=== PATIENT | male | born 1985 | race Caucasian/White ===

== ENCOUNTER 2020-03-10 11:06 | Emergency (ER) | payer OTHER, SELFPAY ==
[2020-03-10 11:15] VITALS: BP 116/76; PULSE 78; RESP 16; TEMP 36.8; O2SAT 98; BMI 29.8
--- NOTE | 2020-03-10 11:47 | XR_ITS ---
EXAMINATION: XR KNEE, RIGHT CLINICAL INFORMATION: Injury COMPARISON: None TECHNIQUE: Four views of the right knee. FINDINGS: No fracture or subluxation. Compartment of joint spaces are maintained. No joint effusion. Enthesophyte formation of the patella. XR/XR knee RT 4V IMPRESSION: No acute abnormality.
--- NOTE | 2020-03-10 11:57 | ED.LOWEXIN ---
HPI - Extremity Injury (Lower) General Chief Complaint: Extremity Injury, Lower Stated Complaint: rt knee inj Time Seen by Provider: 03/10/20 11:47 History of Present Illness HPI Narrative: Patient complains of right knee injury yesterday when he twisted it in sports, no other injury no numbness no weakness no head injury no neck pain Related Data Previous Rx's Medication Instructions Recorded ibuprofen 600 mg PO Q6H PRN #20 tab 03/10/20 oxycodone-acetaminophen [Percocet] 1 tab PO Q6H PRN #14 tab 03/10/20 Allergies Allergy/AdvReac Type Severity Reaction Status Date / Time No Known Allergies Allergy Unverified 01/10/20 16:43 [No Known Allergies*] Review of Systems Review of Systems: Review of systems positive for right knee injury There is no numbness no weakness no paresthesias no laceration no headache no neck pain no chest pain PMFSH Past Medical History Source: nursing notes reviewed Surgical History (Updated 03/10/20 @ 11:18 by Marlen Hernadez) History of cholecystectomy Hx of appendectomy Social History Social History Advance Directives: No Advance Directives Information Provided: Yes Physical Exam Vital Signs: Vital Signs: Last Vital Signs Temp 98.2 F 03/10/20 11:15 Pulse 78 03/10/20 11:15 Resp 16 03/10/20 11:15 BP 116/76 03/10/20 11:15 Pulse Ox 98 03/10/20 11:15 Body Mass Index 29.8 Patient is A&O x3, no acute distress Head is normocephalic atraumatic Neck is supple Extremities the right knee has medial tenderness and swelling he can extend the knee there is no evidence of quadriceps or patellar tendon disruption, the knee is extended to 180 and very uncomfortable with any flexion There is no redness or warmth, he can ambulate but with a bad limp, there is no effusion, there is no laceration, no ecchymosis, neurovascular is intact distal Skin no rashes Neuro no focal deficit Course Course Course Narrative: No acute findings on right knee x-ray and patient is given crutches and a knee immobilizer for comfort and given warnings that over use of knee immobilizer can lead to muscle weakening and decreased range of motion He is advised to follow with orthopedist MDM - Extremity Injury (Lower) Imaging Data r knee x ray: Radiologist's impression: XR KNEE, RIGHT CLINICAL INFORMATION: Injury COMPARISON: None TECHNIQUE: Four views of the right knee. FINDINGS: No fracture or subluxation. Compartment of joint spaces are maintained. No joint effusion. Enthesophyte formation of the patella. XR/XR knee RT 4V IMPRESSION: No acute abnorm Discharge Plan Discharge Clinical Impression: Right knee sprain Patient Disposition: Home, Self-Care Additional Instructions: You may have injured a ligament or cartilage in her right knee Follow with orthopedist for further evaluation X-rays did not reveal any bony injury Return any concerns Prescriptions: New ibuprofen 600 mg tablet 600 mg PO Q6H PRN (Reason: pain) Qty: 20 RF: 0 oxycodone-acetaminophen [Percocet] 5-325 mg tablet 1 tab PO Q6H PRN (Reason: pain) Qty: 14 RF: 0 Referrals: Leah Weems MD [Physician] - 2 days (Right knee injury) Discharge Date/Time: 03/10/20 13:03
== END 2020-03-10 13:03 | disposition home or self-care (01) ==
PROVIDERS: Emergency Provider Emergency Medicine
DX: S83.91XA Sprain of unspecified site of right knee, initial encounter (principal); M25.561 Pain in right knee; X50.1XXA Overexertion from prolonged static or awkward postures, initial encounter; Y93.79 Activity, other specified sports and athletics; Y92.9 Unspecified place or not applicable; Y99.9 Unspecified external cause status; Z79.899 Other long term (current) drug therapy
CPT/HCPCS: 73564; 99282; 99283

== ENCOUNTER 2020-04-20 06:50 | Emergency (ER) | payer OTHER, SELFPAY ==
[2020-04-20 07:00] VITALS: BP 136/95; PULSE 67; RESP 16; TEMP 36.4; O2SAT 98; BMI 30.5
--- NOTE | 2020-04-20 08:20 | ED.DENTAL ---
HPI - Dental/Oral General Chief complaint: Dental/Oral Stated complaint: Dental pain Time Seen by Provider: 04/20/20 08:20 Source: patient Mode of arrival: ambulatory Limitations: no limitations History of Present Illness Complaint: tooth pain Location: Tooth # (Right lower wisdom tooth) Onset (ago): day(s) (2) Duration: constant Severity: severe Severity scale (1-10): 10 Relieving factors: nothing Exacerbating factors: chewing Context: history of dental caries (Similar pain in right lower wisdom tooth 1 year prior treated with antibiotics and pain medication) Associated symptoms: gum swelling and other (Mild trismus) Treatment prior to arrival: oral analgesic (Taking Tylenol and ibuprofen without relief) Related Data Previous Rx's Medication Instructions Recorded ibuprofen 600 mg PO Q6H PRN #20 tab 03/10/20 oxycodone-acetaminophen [Percocet] 1 tab PO Q6H PRN #14 tab 03/10/20 oxycodone 5 mg PO Q4H PRN #10 tab 04/20/20 Allergies Allergy/AdvReac Type Severity Reaction Status Date / Time No Known Allergies Allergy Unverified 01/10/20 16:43 [No Known Allergies*] Review of Systems Review of Systems: Yes all other systems are reviewed and are negative [facility] Past Medical History [facility] Narrative: Patient has no medical problems, he denies tobacco use, he drinks alcohol on the weekends, he smokes marijuana every other day Surgical History History of cholecystectomy Hx of appendectomy Social History Social History Advance Directives: No Advance Directives Information Provided: No Physical Exam Vital Signs: Vital Signs: Last Vital Signs Temp 97.6 F 04/20/20 07:00 Pulse 67 04/20/20 07:00 Resp 16 04/20/20 07:00 BP 136/95 H 04/20/20 07:00 Pulse Ox 98 04/20/20 07:00 Body Mass Index 30.5 Const: General: cooperative and healthy appearing Orientation/consciousness: oriented to person, oriented to place and oriented to time HENMT: Head: Yes normal to inspection General nose exam: Normal external nose present Face and sinus: Yes other (Asymmetric swelling of the right lower jaw compared to the left, tenderness) Mouth: Normal oral and palatal mucosa present, lip normal, tongue normal, no audible dysphonia and no drooling Throat: Yes other (Tenderness with palpation over the right lower wisdom tooth) Eyes: General: appearance normal, both eyes and all related structures Neck: Neck: Yes full ROM and No lymphadenopathy Neuro: General: oriented to person, oriented to place and oriented to time Psych: Appearance: grossly normal Mental Status: mental status grossly normal Speech and movement: Normal speech and movement present Course Course Course Narrative: 34-year-old male who presents emergency department for evaluation of right lower dental pain x2 days with severe pain not relieved by Tylenol and ibuprofen. Physical examination did reveal tenderness with palpation over the right lower jaw was done to with some slight trismus. The patient will be started on penicillin 500 mg 4 times a day for 7 days, he was advised to take ibuprofen Tylenol he was given a very limited prescription for oxycodone to treat his pain. I did discuss the addictive potential of oxycodone and the patient is aware of this and does want this pain medication given the severity of his pain. He is advised to follow-up with a dentist within 1 week and return to the emergency department if his symptoms get worse or if he develops any new symptoms that are concerning to him. [facility] search revealed 1 prescription for Percocet dispensed 14 tablets 1 month prior. Given that the patient has got no pain relief from the ibuprofen and Tylenol I felt that a limited prescription oxycodone was warranted. Discharge Plan Discharge Clinical Impression: Toothache Patient Disposition: Home, Self-Care Instructions: Toothache (ED) Additional Instructions: Take ibuprofen 200 mg pills, 3 pills every 6 hours as needed for pain. Take Tylenol (acetaminophen) 500 mg pills, 2 pills every 4-6 hours as needed for pain. For pain not relieved by ibuprofen or Tylenol take oxycodone 5 mg pills, 1 pill every 4 hours as needed for pain. Do not drive or work while taking this medication since they can cause sleepiness. Oxycodone is a narcotic medication that can be addicting. If you are concerned about addiction you can ask the pharmacist for less pills or do not get this prescription filled. Take penicillin 500 mg pills, 1 pill 4 times a day for 7 days. Follow-up with dentist within 1 week. Please return to the emergency department if her symptoms get worse or if you develop any new symptoms that are concerning to you. Prescriptions: New oxycodone 5 mg tablet 5 mg PO Q4H PRN (Reason: pain) Qty: 10 RF: 0 No Action ibuprofen 600 mg tablet 600 mg PO Q6H PRN (Reason: pain) Qty: 20 RF: 0 oxycodone-acetaminophen [Percocet] 5-325 mg tablet 1 tab PO Q6H PRN (Reason: pain) Qty: 14 RF: 0
== END 2020-04-20 09:45 | disposition home or self-care (01) ==
PROVIDERS: Emergency Provider Emergency Medicine Emergency Medical Services
DX: K08.89 Other specified disorders of teeth and supporting structures (principal); Z79.899 Other long term (current) drug therapy
CPT/HCPCS: 99283

== ENCOUNTER 2022-11-04 11:01 | Emergency (ER) | payer OTHER, SELFPAY ==
--- NOTE | 2022-11-04 11:31 | ED_ITS ---
HPI - General Adult General Chief complaint: Ear Problems Stated complaint: l ear blocked Time Seen by Provider: 11/04/22 12:33 Source: patient, RN notes reviewed and old records reviewed Mode of arrival: ambulatory History of Present Illness HPI narrative: 37-year-old male with no significant past medical history presenting to the ED complaining of left ear pain and feeling clogged s/p swimming yesterday. States tried to clean/dry out ear with Q-tip however feels like he pushed earwax deeper. Denies drainage from ear, fever/chills, sore throat, cough Onset (ago): hour(s) Related Data Previous Rx's Medication Instructions Recorded ibuprofen 600 mg tablet 600 mg PO Q6H PRN pain #20 tabs 03/10/20 oxycodone-acetaminophen 5 mg-325 1 tab PO Q6H PRN pain #14 tabs 03/10/20 mg tablet (Percocet) oxycodone 5 mg tablet 5 mg PO Q4H PRN pain #10 tabs 04/20/20 penicillin V potassium 500 mg 500 mg PO QID 7 days #28 tabs 04/20/20 tablet ciprofloxacin 0.3 %-dexamethasone 4 drp otic (ear) left BID 7 days 11/04/22 0.1 % ear drops,suspension #7.5 mL (Ciprodex) Allergies Allergy/AdvReac Type Severity Reaction Status Date / Time No Known Allergies Allergy Unverified 01/10/20 16:43 [No Known Allergies*] Review of Systems Review of Systems: Constitutional: No Fever, No Chills ENT/Mouth: + Ear Pain, No Nasal Congestion, No sore throat, No Rhinorrhea, No Swallowing Difficulty Cardiovascular: No Chest Pain, No SOB Respiratory: No Cough, No Sputum, No Wheezing Gastrointestinal: No Nausea, No Vomiting, No Abdominal pain Musculoskeletal: No joint pain Skin: No Skin Lesions, No rash Neuro: No Weakness Yes all other systems are reviewed and are negative Constitutional: Constitutional: Reports as per [facility] Past Medical History Attestation statement: The following information was validated with the patient. Source: old records reviewed Surgical History History of cholecystectomy Hx of appendectomy Social History Social History Smoked in Last 30 Days: No Use of substances other than those prescribed or required for medical reasons: No Advance Directives: No Advance Directives Information Provided: Yes Physical Exam ED Vital Signs: Vital Signs - 24 hr 11/04/22 11:32 Temperature 96.9 F Pulse Rate 76 Respiratory Rate 18 Blood Pressure 128/90 H Pulse Oximetry 97 Oxygen Delivery Method Room Air BMI result Body Mass Index 30.6 Const General: cooperative, healthy appearing and no acute distress Orientation/consciousness: patient oriented x3 Limitations: no limitations HENMT Head: Yes normal to inspection and Yes atraumatic Ears: hearing grossly normal bilaterally, mastoids normal and Abnormal EAC present cerumen impaction on the left, erythema on the left and edema on the left; no foreign body and no otic discharge General nose exam: Normal external nose present Face and sinus: Yes normal facial exam Throat: Yes posterior oropharynx normal, Yes tonsils normal, Yes uvula midline, No peritonsillar mass and No uvula laterally displaced Eyes General: appearance normal, both eyes and all related structures EOM: EOMs intact bilaterally Neck Neck: Yes normal visual inspection, Yes no lymphadenopathy, Yes no meningeal signs and No anterior neck swelling Resp Effort & Inspection: normal respiratory effort and no respiratory distress Cardio Rate: regular rate Skin Rashes: no rashes Wounds: no wounds Neuro General: patient oriented x3, tone normal and no meningeal signs Gait exam (Neuro): Normal gait present Extrem General: Yes normal to inspection Course Course Course Narrative: This is a rapid medical exam: Additional HPI, ROS, PE not included below will be deferred to primary provider. Patient is a 37-year-old male presenting with sensation of left ear feeling blocked since yesterday. [place] as though he had water in his ear after swimming, attempted to remove the water with a Q-tip, but states that made pressure worse. Tried OTC drops without relief. Canal erythematous, unable to visualize TM due to cerumen impaction. Plan: [facility] Medications Administered Discontinued Medications Generic Name Dose Route Start Last Admin Trade Name Freq PRN Reason Stop Dose Admin Docusate Sodium 100 mg 11/04/22 12:44 11/04/22 12:58 Docusate Sodium 100 Mg/10 Ml Liquid PO 11/04/22 12:45 100 mg ONCE ONE Administration Medical Decision Making Medical Decision Making MDM Narrative: 37-year-old male with no significant past medical history presenting to the ED complaining of left ear pain and feeling clogged s/p swimming yesterday. On exam vital signs stable, NAD, nontoxic appearing, physical exam as noted above with left ear cerumen impaction and external ear canal edema/erythema. Mastoid WNL. Cerumen in partially cleared with Colace/irrigation. Low suspicion for mastoiditis, chronic otitis externa, or viral syndrome Will treat for otitis externa Results discussed with patient including worrisome signs and symptoms and strict return precautions, and when to return to the emergency department. They verbalized understanding and feel safe for discharge at this time. Differential Diagnosis Differential Diagnoses: The differential diagnosis associated with the presentation includes As above External Record Review External record reviewed: Inpatient record, Office record, Outpatient record, Prior outpatient labs, Prior outpatient radiology, Primary care record and Outside ED record Tests considered The following testing was considered but not selected: As above Prescription Management I considered prescription management with: Pain Medication and Antibiotic Discharge Plan Discharge Clinical Impression: Otitis externa Patient Disposition: Home, Self-Care Instructions: Otitis Externa (DC) Additional Instructions: used 50/50 soaks of saline and peroxide at home, soaking in ear for about 10 mi nutes nightly which will help soften her earwax Ciprodex is antibacterial ear drop, please apply to your ear Take Tylenol /Motrin as needed If symptoms persist or worsen return to ED Prescriptions: New ciprofloxacin-dexamethasone [Ciprodex] 0.3-0.1 % drops,suspension 4 drp otic (ear) left BID 7 Days Qty: 7.5 0RF No Action ibuprofen 600 mg tablet 600 mg PO Q6H PRN (Reason: pain) Qty: 20 0RF oxycodone-acetaminophen [Percocet] 5-325 mg tablet 1 tab PO Q6H PRN (Reason: pain) Qty: 14 0RF Rx Instructions: Narcotic, no driving for 6 hours after taking may cause drowsiness oxycodone 5 mg tablet 5 mg PO Q4H PRN (Reason: pain) Qty: 10 0RF penicillin V potassium 500 mg tablet 500 mg PO QID 7 Days Qty: 28 0RF Referrals: Yaya Felix [Physician] - (as needed) Physician,None [Primary Care Provider] - Interventions: ED Discharge Assessment Last Done: 11/04/22 14:23 Discharge Date/Time: 11/04/22 14:25
[2022-11-04 11:32] VITALS: BP 128/90; PULSE 76; RESP 18; TEMP 36.1; O2SAT 97; BMI 30.6
--- NOTE | 2022-11-04 12:46 | ED_ITS ---
HPI - General Adult General Chief complaint: Ear Problems Stated complaint: l ear blocked Time Seen by Provider: 11/04/22 12:33 History of Present Illness HPI narrative: 37 yo previously healthy male presents to the ED for evaluation for left ear hearing loss x 1 day. He reports that he went swimming yesterday evening when he got some water in his ear. He put Q-tip in his ear and think he push ear wax too far back when his hearing became completely blocked. He tried OTC topical cerumen softener drops and ear irrigation system from [facility] without relief. Denies history of ear infections. Denies fever, chills, headache, ear pain or discharge, sore throat, chest pain, SOB, abdominal pain, N/V/D. Related Data Previous Rx's Medication Instructions Recorded ibuprofen 600 mg tablet 600 mg PO Q6H PRN pain #20 tabs 03/10/20 oxycodone-acetaminophen 5 mg-325 1 tab PO Q6H PRN pain #14 tabs 20 mg tablet (Percocet) oxycodone 5 mg tablet 5 mg PO Q4H PRN pain #10 tabs 04/20/20 penicillin V potassium 500 mg 500 mg PO QID 7 days #28 tabs 04/20/20 tablet ciprofloxacin 0.3 %-dexamethasone 4 drp otic (ear) left BID 7 days 11/04/22 0.1 % ear drops,suspension #7.5 mL (Ciprodex) Allergies Allergy/AdvReac Type Severity Reaction Status Date / Time No Known Allergies Allergy Unverified 01/10/20 16:43 [No Known Allergies*] Review of Systems Review of Systems: Constitutional: No Weight loss, No Fever, No Chills ENT/Mouth: + LT ear hearing loss, No Ear Pain, No Nasal Congestion, No Sinus Pain, No Hoarseness, No sore throat, No Rhinorrhea, No Swallowing Difficulty Cardiovascular: No Chest Pain, No SOB Respiratory: No Cough, No Sputum, No Wheezing Gastrointestinal: No Nausea, No Vomiting, No Diarrhea, No Constipation, No Abdominal pain Musculoskeletal: No joint pain, No Myalgias, No Joint Swelling Skin: No Skin Lesions, No rash PMFSH Past Medical History Surgical History History of cholecystectomy Hx of appendectomy Social History Social History Smoked in Last 30 Days: No Use of substances other than those prescribed or required for medical reasons: No Advance Directives: No Advance Directives Information Provided: Yes Physical Exam ED Vital Signs: Vital Signs - 24 hr 11/04/22 11:32 Temperature 96.9 F Pulse Rate 76 Respiratory Rate 18 Blood Pressure 128/90 H Pulse Oximetry 97 Oxygen Delivery Method Room Air BMI result Body Mass Index 30.6 Const General: comfortable, no acute distress, alert and awake HENMT Head: Yes normocephalic and Yes atraumatic Ears: external ears normal, TM normal on the right and Abnormal EAC present cerumen impaction on the left and erythema on the left General nose exam: Normal external nose present Face and sinus: Yes normal facial exam Eyes General: appearance normal, both eyes and all related structures EOM: EOMs intact bilaterally Resp Effort & Inspection: normal respiratory effort and able to speak in complete sentences Cardio Rate: regular rate Rhythm: regular rhythm Heart sounds: S1 normal heart sound present and S2 normal heart sound present Medications Administered Discontinued Medications Generic Name Dose Route Start Last Admin Trade Name Freq PRN Reason Stop Dose Admin Docusate Sodium 100 mg 11/04/22 12:44 11/04/22 12:58 Docusate Sodium 100 Mg/10 Ml Liquid PO 11/04/22 12:45 100 mg ONCE ONE Administration Discharge Plan Discharge Clinical Impression: Otitis externa Patient Disposition: Home, Self-Care Instructions: Otitis Externa (DC) Additional Instructions: used 50/50 soaks of saline and peroxide at home, soaking in ear for about 10 minutes nightly which will help soften her earwax Ciprodex is antibacterial ear drop, please apply to your ear Take Tylenol /Motrin as needed If symptoms persist or worsen return to ED Prescriptions: New ciprofloxacin-dexamethasone [Ciprodex] 0.3-0.1 % drops,suspension 4 drp otic (ear) left BID 7 Days Qty: 7.5 0RF No Action ibuprofen 600 mg tablet 600 mg PO Q6H PRN (Reason: pain) Qty: 20 0RF oxycodone-acetaminophen [Percocet] 5-325 mg tablet 1 tab PO Q6H PRN (Reason: pain) Qty: 14 0RF Rx Instructions: Narcotic, no driving for 6 hours after taking may cause drowsiness oxycodone 5 mg tablet 5 mg PO Q4H PRN (Reason: pain) Qty: 10 0RF penicillin V potassium 500 mg tablet 500 mg PO QID 7 Days Qty: 28 0RF Referrals: Yaya Felix [Physician] - (as needed) Physician,None [Primary Care Provider] - Interventions: ED Discharge Assessment Last Done: 11/04/22 14:23 Discharge Date/Time: 11/04/22 14:25
[2022-11-04] MEDS: Docusate Sodium 100 MG/10 ML LIQUID PO (12:58)
== END 2022-11-04 14:25 | disposition home or self-care (01) ==
PROVIDERS: Emergency Provider Emergency Medicine Emergency Medical Services
DX: H60.92 Unspecified otitis externa, left ear (principal); H92.02 Otalgia, left ear; Z79.899 Other long term (current) drug therapy
CPT/HCPCS: 99283